=== PATIENT | female | born 1960 | race Caucasian/White ===

== ENCOUNTER 2021-01-04 05:43 | Day surgery (SDC) | payer BC ==
[2020-12-25 14:47] LABS: BASOPHILS # (AUTO) 0.1 X10'3 (0-0.2); BASOPHILS % (AUTO) 0.8 % (0-1); EOSINOPHILS # (AUTO) 0.4 X10'3 (0-0.9); EOSINOPHILS % (AUTO) 5.7 % (0-6); LYMPHOCYTES # (AUTO) 2.2 X10'3 (1.1-4.8); LYMPHOCYTES % (AUTO) 31.5 % (21-51); MEAN CORPUSCULAR HGB CONC 33.7 g/dL (33.0-36.5); MEAN CORPUSCULAR VOLUME 92.1 FL (78-98); MEAN PLATELET VOLUME 8.1 FL (7.4-10.4); MONOCYTES # (AUTO) 0.4 X10'3 (0-0.9); MONOCYTES % (AUTO) 5.4 % (2-12); NEUTROPHILS # (AUTO) 3.9 X10'3 (1.8-7.7); NEUTROPHILS % (AUTO) 56.6 % (42-75); PRE OP HEMATOCRIT 45.5 % (35.0-45.0); PRE OP HEMOGLOBIN 15.3 g/dL (12.0-16.0); PRE OP PLATELET COUNT 299 X10'3 (140-440); RED BLOOD COUNT 4.94 X10'6 (4.20-5.60); RED CELL DISTRIBUTION WIDTH 13.1 % (11.5-14.5)
[2020-12-25 14:55] LABS: ALBUMIN 3.8 G/DL (3.4-5.0); ALBUMIN/GLOBULIN RATIO 1.1 (1.1-1.5); ALKALINE PHOSPHATASE 55 IU/L (46-116); BLOOD UREA NITROGEN 17 MG/DL (7-18); BUN/CREATININE RATIO 19.3 (6.6-38.0); CALCIUM 9.1 MG/DL (8.5-10.1); CHLORIDE 106 MMOL/L (99-107); CREATININE 0.88 MG/DL (0.40-0.90); PRE OP ALT 24 U/L (30-65); PRE OP ANION GAP 9 (8-16); PRE OP AST 14 U/L (10-37); PRE OP BILIRUB, TOTAL 0.3 MG/DL (0.0-1.0); PRE OP GLUCOSE 83 MG/DL (70-104); PRE OP POTASSIUM 3.8 MMOL/L (3.4-5.1); PRE OP SODIUM 143 MMOL/L (135-145); TOTAL CARBON DIOXIDE 28.3 MMOL/L (24-32); TOTAL PROTEIN 7.4 G/DL (6.4-8.2); eGFR 66 ML/MIN
[2020-12-25 14:59] LABS: CLARITY,URINE CLEAR (Clear); COLOR,URINE YELLOW (Yellow); GLUCOSE, URINE NEGATIVE (Neg); KETONES,URINE NEGATIVE (Neg); LEUKOCYTE ESTERASE ,URINE NEGATIVE (Neg); NITRITES, URINE NEGATIVE (Neg); OCCULT BLOOD,URINE NEGATIVE (Neg); PH,URINE 5.5 (4.8-8.0); PROTEIN,URINE NEGATIVE (Neg); UROBILINOGEN,URINE 0.2 E.U/dL (0.2-1.0)
[2020-12-25 15:06] LABS: UA COLLECTION TYPE CLN CATCH MIDSTREAM
[~2021-01-04] VITALS: Ht 157.5 cm; Wt 74.2 kg
[2021-01-04] VITALS (7 sets, daily range): BP systolic 100–130; BP diastolic 53–77
[~2021-01-04 05:43] MED LIST: EST1T PO; ceFAZolin 2gm in dextrose, iso 50 ML IV ONE; famotidine 20mg tablet PO ONE; ringers solution, lacted 1,000 ML IV SCH
[2021-01-04] MEDS ORDERED: NAPR220C15 PO (06:45)
[2021-01-04] MEDS ORDERED: bacitracin 15gm ointment TP ONE ×2 (06:47→08:59)
[2021-01-04] MEDS ORDERED: midazolam 1 mg/ML 2ml injection ONE ×2 (07:21)
[2021-01-04] MEDS ORDERED: fentaNYL/PF 50MCG/1 ML 2ML syringe ONE ×2 (07:21→09:57)
[2021-01-04] MEDS ORDERED: glycopyrrolate 0.2mg/ml inj ONE ×2 (07:25)
[2021-01-04] MEDS ORDERED: neostigmine methylsulfate 1 MG/ML 10ml vial ONE (07:25)
[2021-01-04] MEDS ORDERED: rocuronium 10mg/ml inj IV ONE (07:25)
[2021-01-04] MEDS ORDERED: sevoflurane 250ml liquid IH ONE (07:25)
[2021-01-04] MEDS ORDERED: LIDOcaine 1%/PF 5ML 10 MG/ML VIAL ONE (07:26)
[2021-01-04] MEDS ORDERED: propofol inj 20 ML IV ONE (07:26)
[2021-01-04] MEDS ORDERED: ROPIVAcaine 0.5% (5mg/ml) 30ml vial ONE (07:27)
[2021-01-04] MEDS ORDERED: ondansetron/PF 4mg/2ml inj IV PRN (08:55)
[2021-01-04] MEDS ORDERED: meperidine/PF 25mg/ml syringe IV PRN ×2 (08:55)
[2021-01-04] MEDS ORDERED: HYDROmorphone/PF 0.2 MG/ML SYRINGE IV PRN ×2 (08:55)
[2021-01-04] MEDS ORDERED: ringers solution, lacted 1,000 ML IV SCH (08:55)
[2021-01-04] MEDS ORDERED: ondansetron/PF 4mg/2ml inj ONE (09:43)
[2021-01-04] MEDS ORDERED: dexamethasone sod phosphate 4mg/ml inj. ONE (09:43)
[2021-01-04] MEDS ORDERED: acetaminophen 1,000mg/100ml IV 100 ML IV ONE (09:43)
[2021-01-04] MEDS ORDERED: ePHEDrine 50MG/ML INJ. ONE (09:52)
--- NOTE | 2021-01-04 10:08 | NUR ---
Received from OR via , accompanied by Anesthesiologist DR LOWE and report given by Anesthesiolgist. AWAKENS TO VOICE. VITALS STABLE. DRERSSING/SPLINT GI. TIMMY PAIN. TOES WARM AND PINK.
--- NOTE | 2021-01-04 11:08 | NUR ---
AWAKE AND ORIENTED. VITALS STABLE. SPLINT DI. TIMMY PAIN. HOME WITH A FRIEND AT THIS TIME.
== END 2021-01-04 11:08 | disposition home or self-care (01) ==
LOC: PAS 05:43
PROVIDERS: ATTEND Podiatrist Foot & Ankle Surgery
DX: T84.84XA Pain due to internal orthopedic prosthetic devices, implants and grafts, initial encounter (principal); M21.622 Bunionette of left foot; M25.372 Other instability, left ankle; M19.072 Primary osteoarthritis, left ankle and foot; G89.18 Other acute postprocedural pain; Z88.5 Allergy status to narcotic agent; Z90.710 Acquired absence of both cervix and uterus; Z98.890 Other specified postprocedural states; Z79.899 Other long term (current) drug therapy; Z20.822 Contact with and (suspected) exposure to COVID-19; Y83.8 Other surgical procedures as the cause of abnormal reaction of the patient, or of later complication, without mention of misadventure at the time of the procedure; Y92.89 Other specified places as the place of occurrence of the external cause
CPT/HCPCS: 20680; 27698; 28110; 36415; 64447; 64450; 73620; 76000; 76942; 80053; 81003; 85025; 87426; 93005; A6222; A6223; C1713; J0131; J1100; J2250; J2405; J2704; J2710; J3010; A4215; A4618; A6253; A6449; A7000; J2795; J3490; J7120